=== PATIENT | female | born 1955 | race American Indian/Alaskan Native ===

== ENCOUNTER 2018-05-08 08:39 | Emergency (ER) | payer MEDICARE ==
[2018-05-08 08:54] VITALS: BP 148/73
--- NOTE | 2018-05-08 10:12 | Emergency Department Report ---
ED Fall HPI - General Chief Complaint: Extremity Injury, Upper Stated Complaint: LFT SHOULDER/PAIN Time Seen by Provider: 05/08/18 09:56 Source: patient Mode of arrival: Ambulatory - History of Present Illness Initial Comments: Mrs. Cruz is a 62 yo female who presents with severe left shoulder pain after fall last night in her home around midnight. She tripped over an object on the floor. She fell onto both outstretched hands. She has severe left shoulder pain. She is unable to raise her left arm. She does have power/strength in both hands. MD Complaint: fall -: Sudden, Last night Fall From: standing When Fall Occurred: other (midnight) Place Fall Occurred: home Loss of Consciousness: none Prolonged Down Time?: no Symptoms Prior to Fall: none Location - Extremities: Left: Shoulder Severity: moderate Context: tripped/slipped Associated Symptoms: denies - Related Data Previous Rx's Medication Instructions Recorded Last Taken Type traMADol [Ultram 50 MG tab] 50 mg PO Q6HR PRN #20 tablet 05/08/18 Unknown Rx Allergies Allergy/AdvReac Type Severity Reaction Status Date / Time codeine Allergy Unknown Verified 05/08/18 08:42 ED Review of Systems ROS: Stated complaint: LFT SHOULDER/PAIN Other details as noted in HPI Constitutional: denies: fever, malaise Respiratory: denies: cough, shortness of breath Cardiovascular: denies: chest pain Skin: denies: rash, lesions Neurological: headache. denies: numbness, paresthesias ED Past Medical Hx - Past Medical History Previous Medical History?: Yes Hx Hypertension: Yes - Surgical History Past Surgical History?: Yes Additional Surgical History: hysteroscopy for thick uterine lining - Social History Smoking Status: Never Smoker Substance Use Type: None - Medications Home Medications: Home Medications Medication Instructions Recorded Confirmed Last Taken Type traMADol [Ultram 50 MG tab] 50 mg PO Q6HR PRN #20 tablet 05/08/18 Unknown Rx ED Physical Exam - General Limitations: No Limitations General appearance: alert, in no apparent distress - Head Head exam: Present: atraumatic, normocephalic - Eye Eye exam: Present: normal appearance - ENT ENT exam: Present: mucous membranes moist - Neck Neck exam: Present: normal inspection, full ROM. Absent: tenderness, meningismus - Respiratory Respiratory exam: Absent: respiratory distress - Extremities Exam Extremities exam: Present: other (L hand MUR distally intact without tenderness, full extension and flexion at left elbow, left shoulder unable to lift, intact skin, diffuse tenderness without notable deformity) - Neurological Exam Neurological exam: Present: alert, oriented X3 - Psychiatric Psychiatric exam: Present: normal affect, normal mood - Skin Skin exam: Present: warm, dry, intact, normal color ED Course Vital Signs 05/08/18 08:51 Temperature 97.7 F Pulse Rate 74 Respiratory 16 Rate Blood Pressure 148/73 [Left] O2 Sat by Pulse 98 Oximetry ED Medical Decision Making - Radiology Data Radiology results: report reviewed Osteoarthritis without acute traumatic injury - Medical Decision Making Left shoulder pain likely due to rotator cuff injury with existing osteoarthritis, placed in sling and referred to orthopedic surgeon. Prescribed tramadol Critical care attestation.: If time is entered above; I have spent that time in minutes in the direct care of this critically ill patient, excluding procedure time. ED Disposition Clinical Impression: Sprain of shoulder, left, Osteoarthritis, shoulder Disposition: DC- TO HOME OR SELFCARE Is pt being admited?: No Does the pt Need Aspirin: No Condition: Stable Instructions: Shoulder Sprain (ED), Osteoarthritis (ED) Prescriptions: traMADol [Ultram 50 MG tab] 50 mg PO Q6HR PRN #20 tablet PRN Reason: Pain Referrals: GOMEZ SANCHEZ MD [Staff Physician] - 3-5 Days
--- NOTE | 2018-05-08 11:20 | XRay Report ---
LEFT SHOULDER, 3 views: History: Left shoulder injury. Normal bone mineralization. No acute osseous injury is identified. Mild osteoarthritic changes are identified. The soft tissues are unremarkable. IMPRESSION: Mild osteoarthritis. No acute injury is identified.
[2018-05-08] MEDS ORDERED: ULTRAM PO ONE (11:27)
== END 2018-05-08 11:43 | disposition home or self-care (01) ==
LOC: ED 08:39
DX: S43.402A Unspecified sprain of left shoulder joint, initial encounter (principal); M19.012 Primary osteoarthritis, left shoulder; I10 Essential (primary) hypertension; Z88.6 Allergy status to analgesic agent; W01.198A Fall on same level from slipping, tripping and stumbling with subsequent striking against other object, initial encounter; Y93.89 Activity, other specified; Y92.89 Other specified places as the place of occurrence of the external cause; Y99.8 Other external cause status
CPT/HCPCS: 99284